=== PATIENT | male | born 1955 | race Caucasian/White ===

== ENCOUNTER → 2016-11-08 | Outpatient (CLI) | payer OTHER ==
--- NOTE | 2016-11-08 10:12 | RAD ---
EXAM DESCRIPTION: Pelvis CLINICAL HISTORY: 61 yearsMale, PAIN IN LEFT HIP COMPARISON: None. IMPRESSION: Symmetrical and unremarkable joint spaces within the hips. Pelvic ring is intact. No fracture or osseous lesion noted. Electronically signed by: Evelio Scales MD 11/08/2016 10:11 AM [employer]
== END | disposition home or self-care (01) ==
LOC: RAD 08:54
PROVIDERS: ATTEND Orthopaedic Surgery
DX: M25.552 Pain in left hip (principal)

== ENCOUNTER → 2017-11-09 | Outpatient (CLI) | payer OTHER ==
--- NOTE | 2017-11-09 15:52 | MRI ---
EXAM DESCRIPTION: Brain w/oContrast: MRI. CLINICAL HISTORY: MIGRAINES COMPARISON: None. TECHNIQUE: Multiplanar, high-field MRI unit, multiple diffusion sequences, multiple conventional sequences without contrast. FINDINGS: Normal FLAIR and T2-weighted signal in the periventricular white matter and webber-white matter junctions of the cerebral hemispheres. . Normal signal in the bilateral basal ganglia. No hemorrhage, no cerebral edema, no mass-effect. Normal signal in the brainstem and cerebellar hemispheres. No hemorrhage, no cerebral edema, no mass-effect. Concordance of the diffusion and non-diffusion sequences with no diffusion restriction. Cortical sulci, ventricles, and other CSF spaces, and the subdural spaces are normally configured.. No effacement or displacement. No midline shift. No extra-axial hemorrhage. Normal flow signal void in the major vessels of the teller Kruse, and the venous sinuses. IACs are symmetric bilaterally. Normal signal in the bilateral mastoid air cells. No mass effect in the bilateral cerebellopontine angles. Pituitary gland occupies mainly in the base of the sella. Base of the cerebellar tonsils is above the foramen magnum. Fluid or mucosal thickening right lateral frontal sinus. Mucoperiosteal thickening in the ethmoid air cells. Mostly fluid or mucosal thickening in the left maxillary antrum. Normal signal in the remaining paranasal sinuses. The bony calvarium is intact. IMPRESSION: 1. Normal MRI scan of the brain without gadolinium IV contrast. Normal noncontrast MRI diffusion scan with no evidence of acute or subacute infarction. 2. Small pituitary gland without mass effect is of unknown significance. 3. Chronic paranasal sinusitis with possible acute disease left maxillary antrum. Electronically signed by: Levi Hastings MD 11/09/2017 3:51 PM [facility]
== END ==
LOC: MRI 07:06
PROVIDERS: ATTEND Nurse Practitioner Family
DX: G43.109 Migraine with aura, not intractable, without status migrainosus (principal); J32.9 Chronic sinusitis, unspecified

== ENCOUNTER → 2019-10-12 | Outpatient (CLI) | payer OTHER, BC ==
--- NOTE | 2019-10-13 18:14 | US ---
EXAM DESCRIPTION: Soft Tissue,Extremity: ULTRASOUND. CLINICAL HISTORY: 64 years Male OTHER SPECIFIED SOFT TISSUE DISORDERS COMPARISON: None Available. TECHNIQUE: Transcutaneous scanning: Petty-scale and Doppler modes. FINDINGS: The area of palpation, is an echogenic mass measuring 2.0 x 1.7 x 1.0 cm. Wider than tall orientation with no posterior acoustic features. Spherical shaped hypoechoic tissue centrally measuring 5.8 x 5.7 mm and not vascular. Posterior acoustic shadowing. A second region of hypoechoic tissue measures 3.8 x 3.5 mm in the periphery of the echogenic mass with posterior acoustic shadowing. Other hypoechoic regions with mixed posterior shadowing and nonvascular measure 6.1 x 5.9 mm, 1.4 x 1.4 cm, and 5.8 x 5.7 mm. These also are not vascular with mixed posterior shadowing and no posterior features. IMPRESSION: Palpable mass on the left hip with homogeneous echogenic periphery and multiple hypoechoic smaller lesions within, no definite fluid and not vascular. Nontender with transducer pressure. 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 Electronically signed by: Levi Hastings MD 10/13/2019 6:12 PM [facility]
== END ==
LOC: US 09:30
PROVIDERS: ATTEND Family Medicine
DX: R22.42 Localized swelling, mass and lump, left lower limb (principal)

== ENCOUNTER → 2020-09-12 | Outpatient (CLI) | payer OTHER | LOC: GMAM 12:39 | PROVIDERS: ATTEND Family Medicine | DX: E78.2 Mixed hyperlipidemia (principal); Z13.29 Encounter for screening for other suspected endocrine disorder; Z12.5 Encounter for screening for malignant neoplasm of prostate; E29.1 Testicular hypofunction; E55.9 Vitamin D deficiency, unspecified ==